=== PATIENT | female | born 1965 | race Caucasian/White ===

== ENCOUNTER 2020-04-19 09:42 | Observation (INO) ==
[~2020-04-19 09:42] MED LIST: Buffered Lidocaine 1% SYRIN 1 ml INTRADERM ONE; Lactated Ringers 1000 ml BAG 1,000 ML IV SCH
[2020-04-19] MEDS ORDERED: ceFAZolin 2 GM PREMIX 2 GM/50 ML BAG ONE (10:31)
[2020-04-19] MEDS ORDERED: Morphine ER 30 mg TAB ** extended release ONE (10:33)
[2020-04-19] MEDS ORDERED: Bupivacaine 0.5% 50 ML MDV VIAL ONE (12:06)
[2020-04-19] MEDS ORDERED: Heparin 5000 UNITS/ML 1 mL VIAL ONE (12:06)
[2020-04-19] MEDS ORDERED: Lidocaine 1% w EPI 1:100,000 MDV 20 ML VIAL ONE (12:06)
[2020-04-19] MEDS ORDERED: Lidocaine 2% w/ EPI 1:200,000 MPF 20 ML SDV VIAL ONE (12:06)
[2020-04-19] MEDS ORDERED: Ondansetron 4 mg VIAL 2 MG/ML 2 ml VIAL ONE (12:07)
[2020-04-19] MEDS ORDERED: Propofol 10 MG/ML 20 ML BTL ONE (12:07)
[2020-04-19] MEDS ORDERED: Chlorhexidine MOUTHWASH 0.12% 15 ML UDC ONE (12:07)
[2020-04-19] MEDS ORDERED: Lidocaine 2% PF 5 ML VIAL ONE (12:07)
[2020-04-19] MEDS ORDERED: Dexamethasone IV 4 MG/ML VIAL 1 ml VIAL ONE (12:07)
[2020-04-19] MEDS ORDERED: Midazolam 2 mg/2 ml VIAL 1 mg/ml 2 ml VIAL (2 mg) ONE (12:10)
[2020-04-19] MEDS ORDERED: fentaNYL 250 mcg/5 ml 50 MCG/ML 5 ml VIAL (250 MCG) ONE (12:11)
[2020-04-19] MEDS ORDERED: Glycopyrrolate IV 0.2 MG/ML 1 ML VIAL ONE ×2 (13:33→13:38)
[2020-04-19] MEDS ORDERED: Rocuronium 50 mg VIAL 10 mg/ml 5 ml VIAL (50 mg) ONE (15:51)
[2020-04-19] MEDS ORDERED: Ondansetron 4 mg VIAL 2 MG/ML 2 ml VIAL IV PRN (16:26)
[2020-04-19] MEDS ORDERED: Naloxone 0.4 mg VIAL 0.4 mg/ml 1 ml VIAL IV PRN (16:26)
[2020-04-19] MEDS ORDERED: HYDROmorphone 1 MG/1 ML SYRINGE IV PRN (16:26)
[2020-04-19] MEDS ORDERED: fentaNYL 100 mcg/2 ml 50 MCG/ML VIAL IV PRN (16:26)
[2020-04-19] MEDS ORDERED: ceFAZolin VIAL VIAL ONE (17:35)
[2020-04-19] MEDS ORDERED: Furosemide 20 mg/2 ml IV VIAL ONE (17:46)
[2020-04-19] MEDS ORDERED: Fluorescein 10% INJ 100 MG/ML AMP ONE (18:08)
[2020-04-19] MEDS ORDERED: Iohexol 180 (CONTRAST) 10 ML SDV IV ONE ×2 (18:49→19:20)
[2020-04-19] MEDS ORDERED: fentaNYL 100 mcg/2 ml 50 MCG/ML VIAL ONE ×2 (19:54→20:37)
[2020-04-19] MEDS ORDERED: Labetalol IV 5 MG/ML 20 ml VIAL IV PUSH ONE (21:43)
[2020-04-19] MEDS ORDERED: Labetalol IV 5 MG/ML 20 ml VIAL ONE (21:44)
[2020-04-20] MEDS: oxyCODONE/Acetamin 5/325 mg TAB PO PRN ×2 (08:20→20:36)
[2020-04-20] MEDS: Lactated Ringers 1000 ml BAG 1,000 ML IV SCH (14:46)
[2020-04-20 15:45] LABS: BUN/Creatinine Ratio 14.9 (8-20); Calcium 8.6 mg/dL (8.6-10.3); EGFR African American 49.5 (>60); EGFR Non-African American 40.9 (>60); Potassium 3.1 mmol/L (3.5-5.0)
[2020-04-20] MEDS ORDERED: KCL 20 MEQ/100 ML IVPREMIX 20 MEQ/100 ML BAG IV ONE (19:30)
[2020-04-21] MEDS: Lactated Ringers 1000 ml BAG 1,000 ML IV SCH (00:40)
[2020-04-21 06:42] LABS: BUN/Creatinine Ratio 14.1 (8-20); EGFR African American 70.2 (>60); Potassium 3.3 mmol/L (3.5-5.0)
[2020-04-21 11:22] VITALS: BP 143/85
== END 2020-04-21 12:00 | disposition home or self-care (01) ==
LOC: SSU 09:42 → OR 09:42
PROVIDERS: ADMIT Obstetrics & Gynecology; ATTEND Obstetrics & Gynecology